=== PATIENT | female | born 1990 | race American Indian/Alaskan Native ===

== ENCOUNTER 2019-04-28 03:38 | Emergency (ER) | payer SELFPAY ==
--- NOTE | 2019-04-28 04:27 | Emergency Department Report ---
ED Female HPI - General Chief complaint: Urogenital-Female Stated complaint: HUGE VAGINAL ABSCESS Time Seen by Provider: 04/28/19 04:08 Source: patient Mode of arrival: Ambulatory Limitations: No Limitations - History of Present Illness Initial comments: patient is a 28-year-old female presents emergency room with complaints of a vaginal abscess of the right labia that began about 3-4 days ago. She states she also has dysuria. She denies ever having this in the past. She denies any fever, nausea, vomiting, diarrhea, vaginal itching, vaginal burning, abnormal vaginal discharge. She denies any past medical history or allergies medications. She states her last menstrual period was last week. She states that she does not have an ENVIRONMENTAL INSPECTOR that she just recently moved from [place]. - Related Data Previous Rx's Medication Instructions Recorded Last Taken Type Acetaminophen/Codeine [Tylenol 1 tab PO Q6H PRN #7 tab 04/28/19 Unknown Rx /Codeine # 3 tab] metroNIDAZOLE [Flagyl] 500 mg PO BID 7 Days #14 tab 04/28/19 Unknown Rx Allergies Allergy/AdvReac Type Severity Reaction Status Date / Time No Known Allergies Allergy Verified 04/28/19 06:06 ED Review of Systems ROS: Stated complaint: HUGE VAGINAL ABSCESS Other details as noted in HPI Comment: All other systems reviewed and negative ED Past Medical Hx - Past Medical History Previous Medical History?: No - Surgical History Past Surgical History?: No - Social History Smoking Status: Never Smoker Substance Use Type: None - Medications Home Medications: Home Medications Medication Instructions Recorded Confirmed Last Taken Type Acetaminophen/Codeine [Tylenol 1 tab PO Q6H PRN #7 tab 04/28/19 Unknown Rx /Codeine # 3 tab] metroNIDAZOLE [Flagyl] 500 mg PO BID 7 Days #14 tab 04/28/19 Unknown Rx ED Physical Exam - General Limitations: No Limitations General appearance: alert, in no apparent distress - Head Head exam: Present: atraumatic, normocephalic - Eye Eye exam: Present: normal appearance - ENT ENT exam: Present: mucous membranes moist - External exam: Present: swelling (1.5 cm area of edema and induration inside the right labia, there is a small opening present with purulent drainage present, no blistering, no necrosis) Speculum exam: Present: other (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 Absent: erythema, vaginal discharge, cervical discharge, vaginal bleeding, foreign body, tissue, laceration - Neurological Exam Neurological exam: Present: alert, oriented X3 - Psychiatric Psychiatric exam: Present: normal affect, normal mood - Skin Skin exam: Present: warm, dry, intact ED Course Vital Signs 04/28/19 03:40 Temperature 98.9 F Pulse Rate 88 Respiratory 18 Rate Blood Pressure 127/77 [Right] O2 Sat by Pulse 99 Oximetry - I & D Right Vagina Type of Procedure: Simple Site: inside of the right labia Blade Size: 11 I & D Procedure: betadine prep, sterile drapes applied, sterile dressing applied Progress: right Labia prepped with Betadine, sterile drapes applied, 2 mL of 1% lidocaine without epinephrine used as anesthetic, 1 cm incision made with 11 blade, small amount of purulent drainage expressed, irrigated with saline, packed with iodoform gauze, patient tolerated well, no complications, bleeding controlled ED Medical Decision Making - Medical Decision Making patient is a 28-year-old female presents emergency room with complaints of a vaginal abscess of the right labia that began about 3-4 days ago. She states she also has dysuria. She denies ever having this in the past. She denies any fever, nausea, vomiting, diarrhea, vaginal itching, vaginal burning, abnormal vaginal discharge. She denies any past medical history or allergies medications. She states her last menstrual period was last week. She states that she does not have an ENVIRONMENTAL INSPECTOR that she just recently moved from [place]. vitals are normal. on exam: 1.5 cm area of edema and induration inside the right labia, there is a small opening present with purulent drainage present, no blistering, no necrosis. MILENA Dueñas present during pelvic examination and I&D. Incision and drainage performed per procedure note without complications. A without evidence of UTI. Urine is negative. Wet prep shows evidence of BV. G/C swab sent. Patient given prescription for Tylenol with codeine and Flagyl. advised pt to please take medication as prescribed. Do not drink alcohol while taking medication. Do not drive or operate machinery while taking pain medication. Packing will need to be removed in 2 days, may return to the emergency room for removal and evaluation. Please keep area clean, dry. May wash around the area with soap and water and immediately dry. No hot tub, pool, soaking in water. please go to medical records in one week with your drivers license for results of your tests to see if you need further treatment. Follow- up with a primary care doctor and ENVIRONMENTAL INSPECTOR in the next 3-5 days. Return to the emergency room for any new or worsening symptoms. - Differential Diagnosis Bartholin's cyst, abscess, STD, yeast, BV, vaginitis, UTI Critical care attestation.: If time is entered above; I have spent that time in minutes in the direct care of this critically ill patient, excluding procedure time. ED Disposition Clinical Impression: Abscess of vagina, Bacterial vaginosis Disposition: TO HOME OR SELFCARE Is pt being admited?: No Does the pt Need Aspirin: No Condition: Stable Instructions: Bacterial Vaginosis (ED), Abscess Incision and Drainage (ED) Additional Instructions: please take medication as prescribed. Do not drink alcohol while taking medication. Do not drive or operate machinery while taking pain medication. Packing will need to be removed in 2 days, may return to the emergency room for removal and evaluation. Please keep area clean, dry. May wash around the area with soap and water and immediately dry. No hot tub, pool, soaking in water. please go to medical records in one week with your drivers license for results of your tests to see if you need further treatment. Follow-up with a primary care doctor and ENVIRONMENTAL INSPECTOR in the next 3-5 days. Return to the emergency room for any new or worsening symptoms. Prescriptions: metroNIDAZOLE [Flagyl] 500 mg PO BID 7 Days #14 tab Acetaminophen/Codeine [Tylenol /Codeine # 3 tab] 1 tab PO Q6H PRN #7 tab PRN Reason: Pain , Severe (7-10) Referrals: PRIMARY CAREMD [Primary Care Provider] - 3-5 Days [facility] [Outside] - 3-5 Days [facility] [Outside] - 3-5 Days AWA CORTÉS MD [Staff Physician] - 3-5 Days [facility] [Provider Group] - 3-5 Days [facility] [Provider Group] - 3-5 Days [facility] [Provider Group] - 3-5 Days Forms: STI Treatment and Prevention Time of Disposition: 05:58 Print Language: MALDIVIAN
[2019-04-28] MEDS ORDERED: LIDOCAINE-MPF (1%) 10 MG/1 ML VIAL 5 ML INFILTRATI ONE (04:32)
[2019-04-28 05:08] LABS: Amorphous Crystals,Urine Few; Bacteria,Urine 1+ /HPF (Negative); Bilirubin,Urine NEG (Negative); Blood,Urine NEG (Negative); Color,Urine Yellow (Yellow); Mucus,Urine 1+ /HPF; Protein,Urine <15 mg/dL mg/dL (Negative)
[2019-04-28 05:26] LABS: HCG Qualitative,Urine Negative (Negative)
[2019-04-28 06:06] VITALS: BP 127/77
== END 2019-04-28 06:04 | disposition home or self-care (01) ==
LOC: ED 03:38
DX: N76.0 Acute vaginitis (principal)
CPT/HCPCS: 81001; 81025; 87210; 87591; 99283